=== PATIENT | male | born 1950 | race Caucasian/White ===

== ENCOUNTER 2020-05-29 11:16 | Emergency (ER) | payer OTHER ==
[~2020-05-29] VITALS: Ht 165.1 cm; Wt 68.0 kg
[~2020-05-29 11:16] MED LIST: PERCOCET 5/3251 TAB PO; POLY119PG PO; SURFAK240 M1 PO
== END 2020-05-29 14:04 | disposition home or self-care (01) ==
LOC: ER 11:16
DX: B34.9 Viral infection, unspecified (principal); Z03.818 Encounter for observation for suspected exposure to other biological agents ruled out